=== PATIENT | female | born 1985 ===

== ENCOUNTER 2016-10-20 16:55 | Emergency (ER) | payer MEDICAID ==
[2016-10-20 16:56] VITALS: BMI 25.8
[2016-10-20 17:08] VITALS: TEMP 99; O2SAT 100
--- NOTE | 2016-10-20 17:35 | ED PDOC ---
Arrival/HPI - General Chief Complaint: Abdominal Pain Time Seen by Provider: 10/20/16 17:10 Historian: Patient - History of Present Illness Narrative History of Present Illness (Text): 10/20/16 17:31 Patient reports that she is , has a history of an ectopic on the right side 2 years ago, and is status post right oophorectomy and removal of her right fallopian tube. She doesn't know far along she is in her , reports developing sudden onset of sharp constant left pelvic pain associated with light pink vaginal d/c. Otherwise: (-) N/V, (-) fever, (-) urinary symptoms , (-) prior salpingitis. Has (-) care and (-) prior OB ultrasound. Reports her first appointment with her OB is on 10/28/16. B[employer]ER HISTORY: 5 Para 3 AB 0 LNMP 08/22/16 Past Medical History - Provider Review Nursing Documentation Reviewed: Yes - Past History Past History: No Previous - Infectious Disease Hx of Infectious Diseases: None - Tetanus Immunization Tetanus Immunization: Unknown - Past Medical History Past Medical History: No Previous - Cardiac Hx Cardiac Disorders: No - Pulmonary Hx Respiratory Disorders: No - Neurological Hx Neurological Disorder: No - HEENT Hx HEENT Disorder: No - Renal Hx Renal Disorder: No - Endocrine/Metabolic Hx Endocrine Disorders: No - Hematological/Oncological Hx Blood Disorders: No - Integumentary Hx Dermatological Disorder: No - Musculoskeletal/Rheumatological Hx Musculoskeletal Disorders: No - Gastrointestinal Hx Gastrointestinal Disorders: No - Genitourinary/Gynecological Hx Genitourinary Disorders: No - Psychiatric Hx Psychophysiologic Disorder: No Hx Substance Use: No - Past Surgical History Past Surgical History: No Previous - Surgical History Other/Comment: Right Fallopian Tube and ovary removed. - Anesthesia Hx Anesthesia: Yes Hx Anesthesia Reactions: No - Suicidal Assessment Feels Threatened In Home Enviroment: No Family/Social History - Physician Review Nursing Documentation Reviewed: Yes Family/Social History: No Known Family HX Smoking Status: Former Smoker Hx Alcohol Use: Yes (Last week) Hx Substance Use: No Hx Substance Use Treatment: No Allergies/Home Meds Allergies/Adverse Reactions: Allergies No Known Allergies Allergy (Verified 10/20/16 17:08) Home Medications: Home Meds Medication Instructions Recorded Confirmed Vit Calc,Iron,Folic 1 tab PO DAILY 10/20/16 10/20/16 [ Vitamins] Review of Systems - Review of Systems Constitutional: Normal. absent: Fatigue, Weight Change, Fevers Respiratory: Normal. absent: SOB, Cough, Sputum Cardiovascular: Normal. absent: Chest Pain, Palpitations, Edema Gastrointestinal: Normal, Abdominal Pain. absent: Stool Changes, Appetite Changes Genitourinary Female: Normal, Vaginal Discharge. absent: Dysuria, Frequency, Hematuria Musculoskeletal: Normal. absent: Arthralgias, Back Pain, Neck Pain Skin: Normal. absent: Rash, Pruritis, Skin Lesions Physical Exam - Physical Exam Narrative Physical Exam (Text): 10/20/16 17:37 GENERAL APPEARANCE: Patient is awake, alert, oriented x 3, in mild painful distress. SKIN: Warm, dry; (-) cyanosis. EYES: (-) conjunctival pallor. ENMT: Mucous membranes moist. NECK: (-) tenderness, (-) stiffness, (-) lymphadenopathy. CHEST AND RESPIRATORY: (-) rales, (-) rhonchi, (-) wheezes; breath sounds equal bilaterally. HEART AND CARDIOVASCULAR: (-) irregularity; (-) murmur, (-) gallop. ABDOMEN AND GI: Soft; (+) L pelvic tenderness. EXTREMITIES: (-) deformity. NEURO AND PSYCH: Mental status as above; (-) focal findings. Vital Signs Temp Pulse Resp BP Pulse Ox 10/20/16 20:21 70 18 138/79 100 10/20/16 17:03 99 F 74 16 146/84 100 Medical Decision Making ED Course and Treatment: 10/20/16 17:35 31 yo F ~8 weeks based on her LMP, w/ history of an ectopic on the right side 2 years ago, is status post right oophorectomy and removal of her right fallopian tube, reports developing sudden onset of sharp constant left pelvic pain associated with light pink vaginal d/c. Patient is refusing analgesics at this time. Plan: -- Labs -- IV fluids -- Urinalysis -- Type and screen / beta quant -- Reassess and disposition -- US TV 10/20/16 19:48 On re-evaluation, patient is resting in bed comfortably in no acute distress. Patient is now asking for pain medication. On exam, abdomen remains soft with mild tenderness to the L pelvic area, (-) suárez's, (-) rebound, (-) guarding. US results reviewed. Patient given tylenol po. US TV : Findings consistent with likely early intrauterine . No adnexal mass or torsion. No free fluid. Consider serial hCG follow-up and repeat ultrasound in one or 2 weeks for more definitive assessment. Beta quant 2,323 Type and screen O+ Diagnosis of early discussed with the patient and notified that she likely does not have an ectopic. However the patient was advised to f/u with her OB after 2 days or return to the ER if she is unable to see her OB to have a repeat beta quant. Otherwise was instructed to return to the emergency room at any time for any new or worsening symptoms. Patient states she fully agrees with and understands discharge instructions. States that she agrees with the plan and disposition. Verbalized and repeated discharge instructions and plan. I have given the patient opportunity to ask any additional questions. - Lab Interpretations Lab Results: 10/20/16 17:30 10/20/16 17:30 Lab Results 10/20/16 17:49: Blood Type O POSITIVE, Antibody Screen Negative, BBK History Checked Patient has bt 10/20/16 17:30: Beta HCG, Quant 2323.50 H 10/20/16 17:30: Sodium 138, Potassium 3.9, Chloride 103, Carbon Dioxide 23, Anion Gap 16, BUN 13, Creatinine 0.5, Est GFR ( Amer) > 60, Est GFR (Non- Af Amer) > 60, Random Glucose 81, Calcium 9.9, Total Bilirubin 0.4, AST 119 H, ALT 282 H, Alkaline Phosphatase 150 H, Total Protein 7.8, Albumin 4.4, Globulin 3.4, Albumin/Globulin Ratio 1.3 10/20/16 17:30: PT 11.3, INR 1.05, APTT 28.0 10/20/16 17:30: WBC 14.8 H D, RBC 4.18, Hgb 13.3, Hct 39.4, MCV 94.3, MCH 31.8, MCHC 33.8, RDW 13.5, Plt Count 233, MPV 10.7, Gran % 58.7, Lymph % (Auto) 31.4, [place] % (Auto) 8.4 H, Eos % (Auto) 1.3 L, Baso % (Auto) 0.2, Gran # 8.69 H, Lymph # 4.7 H, [place] # 1.2 H, Eos # 0.2, Baso # 0.03 10/20/16 17:15: Urine Color Yellow, Urine Appearance Clear, Urine pH 6.0, Ur Specific [place] >= 1.030, Urine Protein 30 H, Urine Glucose (UA) Negative, Urine Ketones Negative, Urine Blood Negative, Urine Nitrate Negative, Urine Bilirubin Negative, Urine Urobilinogen 0.2, Ur Leukocyte Esterase Negative, Urine RBC 0 - 2, Urine WBC 0 - 2, Ur Epithelial Cells Many, Amorphous Sediment Few, Urine Bacteria Many, Urine Other Uyeast I have reviewed the lab results: Yes (LFTs mildly elevated, pt reports that this is not new and has had prior hx.) - RAD Interpretation Narrative RAD Interpretations (Text): 10/20/16 19:46 US TV : FINDINGS: Gestation: Intrauterine gestational sac is present, with adjacent decidual cast. No yolk sac is present. Embryo is not seen at this time, no heart tones. Corresponds to less than 4 weeks. Placenta/amniotic fluid: Cannot be adequately evaluated due to the early gestational age. Uterus/cervix: The uterus measures 10.7 cm and is anteverted. Cervix 3.4 cm. Endometrial thickness 9.5 mm. No myometrial mass. Ovaries: Unremarkable. No mass. Normal flow. Free fluid: No free fluid. IMPRESSION: Findings consistent with likely early intrauterine . No adnexal mass or torsion. No free fluid. Consider serial hCG follow-up and repeat ultrasound in one or 2 weeks for more definitive assessment. Dictated and Authenticated by: Phil Perez MD 10/20/2016 7:33 PM Eastern Time ([place] & [place]) Radiology Orders: 10/20/16 17:25 OB TRANSVAGINAL [US] Stat - Medication Orders Current Medication Orders: Discontinued Medications Acetaminophen (Tylenol 325mg Tab) 975 mg PO STAT STA Stop: 10/20/16 19:48 Last Admin: 10/20/16 19:49 Dose: 975 mg Acetaminophen (Tylenol 325mg Tab) Confirm Administered Dose 975 mg .ROUTE .STK- MED ONE Stop: 10/20/16 19:49 Last Admin: 10/20/16 19:52 Dose: - PA / MANUFACTURER[employer]S SERVICE REPRESENTATIVE / Resident Statement /DO has reviewed & agrees with the documentation as recorded. Disposition/Present on Arrival - Present on Arrival Any Indicators Present on Arrival: No History of DVT/PE: No History of Uncontrolled Diabetes: No Urinary Catheter: No History of Decub. Ulcer: No History Surgical Site Infection Following: None - Disposition Have Diagnosis and Disposition been Completed?: Yes Diagnosis: Pelvic pain, Disposition: HOME/ ROUTINE Disposition Time: 20:06 Patient Plan: Discharge Condition: STABLE Discharge Instructions (ExitCare): (ED), Abdominal Pain (ED) Print Language: TURKMEN Additional Instructions: Thank you for letting us take care of you today. You were treated for abdominal pain, likely early . The emergency medical care you received today was directed at your acute symptoms. Return to the Emergency Department if your symptoms worsen, do not improve, or if you have any other problems. Please contact your OB doctor after 2 days for repeat Beta Quant, if unable to return to the ER. Bring any paperwork you were given at discharge with you along with any medications you are taking to your follow up visit. Our treatment cannot replace ongoing medical care by a primary care provider (PCP) outside of the emergency department. Thank you for allowing the [facility] team to be part of your care today. Forms: [employer] (Togolese), WORK NOTE
[2016-10-20 17:42] LABS: URINE BILIRUBIN NEGATIVE (NEGATIVE); URINE BLOOD NEGATIVE (NEGATIVE); URINE GLUCOSE (UA) NEGATIVE (NEGATIVE); URINE KETONE NEGATIVE (NEGATIVE); URINE LEUKOCYTE ESTERASE NEGATIVE Leu/uL (NEGATIVE); URINE PROTEIN 30 mg/dL (<30 mg/dL); URINE UROBILINOGEN 0.2 E.U./dL (<1 E.U./dL)
[2016-10-20 17:42] LABS: BASO # 0.03 K/mm3 (0.0-2.0); BASO % 0.2 % (0.0-3.0); EOS # 0.2 (0.0-0.7); EOS % 1.3 % (1.5-5.0); GRAN # 8.69 (1.4-6.5); GRAN % 58.7 % (50.0-68.0); HEMATOCRIT 39.4 % (36.0-48.0); LYMPH # 4.7 (1.2-3.4); LYMPH % 31.4 % (22.0-35.0); MEAN CELL VOLUME 94.3 fl (80.0-105.0); MEAN CORPUSCULAR HEMOGLOBIN 31.8 pg (25.0-35.0); MEAN CORPUSCULAR HGB CONC 33.8 g/dl (31.0-37.0); MEAN PLATELET VOLUME 10.7 fl (7.0-11.0); MONO # 1.2 (0.1-0.6); MONO % 8.4 % (1.0-6.0); RED CELL DISTRIBUTION WIDTH 13.5 % (11.5-14.5); WHITE BLOOD COUNT 14.8 10^3/ul (4.5-11.0)
[2016-10-20 17:44] LABS: URINE APPEARANCE CLEAR (CLEAR); URINE COLOR YELLOW (YELLOW)
[2016-10-20 17:47] LABS: URINE AMORPHOUS SEDIMENT FEW; URINE BACTERIA MANY (NEG); URINE EPITHELIAL CELLS MANY /hpf (0-5); URINE RBC 0 - 2 /hpf (0-2); URINE WBC 0 - 2 /hpf (0-6)
[2016-10-20 17:52] LABS: INR 1.05 (0.93-1.08)
[2016-10-20 17:59] LABS: ALB/GLOB RATIO 1.3 (1.1-1.8); ALKALINE PHOSPHATASE 150 U/L (38-126); ALT/SGPT 282 U/L (7-56); AST/SGOT 119 U/L (14-36); BILIRUBIN,TOTAL 0.4 mg/dL (0.2-1.3); BLOOD UREA NITROGEN 13 mg/dL (7-21); CALCIUM 9.9 mg/dL (8.4-10.5); CARBON DIOXIDE 23 mmol/L (21-33); CHLORIDE 103 mmol/L (98-107); GFR AFRICAN-AMERICAN > 60; GLUCOSE,RANDOM 81 mg/dL (70-110); POTASSIUM 3.9 mmol/L (3.6-5.0); SODIUM 138 mmol/L (132-148); TOTAL PROTEIN 7.8 g/dL (5.8-8.3)
[2016-10-20 20:21] VITALS: BP 138/79; PULSE 70; RESP 18
--- NOTE | 2016-10-21 07:39 | US ---
PROCEDURE: OB Pelvic Ultrasound HISTORY: L pelvic pain, r/o ectopic, has h/o prior ectopic COMPARISON: None available. FINDINGS: UTERUS: Probable early intrauterine gestational sac identified. Sac diameter is 7 mm, out of range for age determination. No pole. No subchorionic hemorrhage. Uterus measures 10.7 x 6.4 x 7.3 cm. The endometrium 10 mm in diameter. . CERVIX: Long and closed. No cervical abnormality seen. RIGHT OVARY: Measures 3.7 x 2.0 x 3.8 cm. No mass. Normal flow. LEFT OVARY: Measures 4.8 x 2.5 x 3.9 cm. No mass. Normal flow. FREE FLUID: None. OTHER FINDINGS: None. IMPRESSION: Probable early intrauterine gestation. Sac diameter out of range for age determination. No pole. No subchorionic hemorrhage. Follow-up with transvaginal pelvic ultrasound examination and serial beta HCG assessment advised.
== END 2016-10-20 20:19 | disposition home or self-care (01) ==
LOC: ED 16:55
DX: O26.891 Other specified pregnancy related conditions, first trimester (principal); R10.2 Pelvic and perineal pain; Z3A.00 Weeks of gestation of pregnancy not specified; Z90.721 Acquired absence of ovaries, unilateral

== ENCOUNTER 2016-10-22 10:06 | Emergency (ER) | payer MEDICAID ==
[2016-10-22 10:13] VITALS: TEMP 98.4; BMI 30.9
--- NOTE | 2016-10-22 10:58 | ED PDOC ---
Arrival/HPI - General Chief Complaint: Medical Clearance Time Seen by Provider: 10/22/16 10:50 Historian: Patient - History of Present Illness Narrative History of Present Illness (Text): 10/22/16 10:54 This 31 yo female [id number], Gravid, PMH ectopic x 2 years ago, presents to this ED with Spouse requesting a repeat blood test. She stated she was recommended to have blood test repeated in 2 days by her SEWER PIPE SORTER, and to return to ED if unable to get this test as out-pt. Patient doesn't know far along she is in her , reports left pelvic pain has been progressively improving. (-) N/V, (-) fever, (-) urinary symptoms, (-) prior salpingitis. Has (-) care and (-) prior OB ultrasound. Reports her first appointment with her OB is on 10/28/16. [employer] HISTORY: 5 Para 3 AB 1 LNMP 08/22/16 Time/Duration: Other (see hpi) Context: Home Past Medical History - Provider Review Nursing Documentation Reviewed: Yes - Past History Past History: No Previous - Infectious Disease Hx of Infectious Diseases: None - Tetanus Immunization Tetanus Immunization: Unknown - Past Medical History Past Medical History: No Previous - Cardiac Hx Cardiac Disorders: No - Pulmonary Hx Respiratory Disorders: No - Neurological Hx Neurological Disorder: No - HEENT Hx HEENT Disorder: No - Renal Hx Renal Disorder: No - Endocrine/Metabolic Hx Endocrine Disorders: No - Hematological/Oncological Hx Blood Disorders: No - Integumentary Hx Dermatological Disorder: No - Musculoskeletal/Rheumatological Hx Musculoskeletal Disorders: No - Gastrointestinal Hx Gastrointestinal Disorders: No - Genitourinary/Gynecological Hx Genitourinary Disorders: No - Psychiatric Hx Psychophysiologic Disorder: No Hx Substance Use: No - Past Surgical History Past Surgical History: No Previous - Surgical History Other/Comment: Right Fallopian Tube and ovary removed after ectopic - Anesthesia Hx Anesthesia: Yes Hx Anesthesia Reactions: No - Suicidal Assessment Feels Threatened In Home Enviroment: No Family/Social History - Physician Review Nursing Documentation Reviewed: Yes Family/Social History: Other (Non-contributory) Smoking Status: Former Smoker Hx Alcohol Use: Yes (Last week) Hx Substance Use: No Hx Substance Use Treatment: No Allergies/Home Meds Allergies/Adverse Reactions: Allergies No Known Allergies Allergy (Verified 10/22/16 10:10) Home Medications: Home Meds Medication Instructions Recorded Confirmed Vit Calc,Iron,Folic 1 tab PO DAILY 10/20/16 10/22/16 [ Vitamins] Review of Systems - Review of Systems Constitutional: Normal. absent: Fatigue, Weight Change, Fevers Eyes: Normal ENT: Normal Respiratory: Normal. absent: SOB, Cough Cardiovascular: Normal. absent: Chest Pain, Palpitations Gastrointestinal: Other (see hpi). absent: Constipation, Diarrhea, Nausea, Vomiting Genitourinary Female: Normal. absent: Dysuria, Frequency, Hematuria, Vaginal Bleeding, Vaginal Discharge Musculoskeletal: Normal. absent: Back Pain Skin: Normal Neurological: Normal. absent: Headache, Dizziness, Focal Weakness, Gait Changes , Facial Droop, Disequilibrium Endocrine: Normal Hemo/Lymphatic: Normal Psychiatric: Normal Physical Exam Vital Signs Temp Pulse Resp BP Pulse Ox 10/22/16 10:12 98.4 F 92 H 17 119/79 96 Temperature: Afebrile Blood Pressure: Normal Pulse: Regular Respiratory Rate: Normal Appearance: Positive for: Well-Appearing, Non-Toxic, Comfortable Pain Distress: None Mental Status: Positive for: Alert and Oriented X 3 - Systems Exam Head: Present: Atraumatic, Normocephalic Pupils: Present: PERRL Extroacular Muscles: Present: EOMI Conjunctiva: Present: Normal Mouth: Present: Moist Mucous Membranes Neck: Present: Normal Range of Motion Respiratory/Chest: Present: Clear to Auscultation, Good Air Exchange. No: Respiratory Distress, Accessory Muscle Use, Wheezes, Retracting, Rhonchi Cardiovascular: Present: Regular Rate and Rhythm, Normal S1, S2. No: Murmurs Abdomen: Present: Normal Bowel Sounds. No: Tenderness, Distention, Peritoneal Signs, Rebound, Guarding Upper Extremity: Present: Normal Inspection, Normal ROM. No: Edema Lower Extremity: Present: Normal Inspection, Normal ROM. No: Edema Neurological: Present: GCS=15, CN II-XII Intact, Speech Normal Skin: Present: Warm, Dry, Normal Color. No: Rashes Psychiatric: Present: Alert, Oriented x 3 Medical Decision Making ED Course and Treatment: 10/22/16 12:07 Re-evaluation. Patient feels better. Discussed results and plan with patient who expresses understanding. All questions answered and there is agreement with the plan to discharge home with instructions. Patient stable for discharge. Return if symptoms persist or worsen. Patient stated she feels well on her normal state of health. Pelvic pain has improved. Patient has an appointment to see her SEWER PIPE SORTER next Friday - Lab Interpretations Lab Results: Lab Results 10/22/16 11:18: Beta HCG, Quant 5438.30 H Disposition/Present on Arrival - Present on Arrival Any Indicators Present on Arrival: No History of DVT/PE: No History of Uncontrolled Diabetes: No Urinary Catheter: No History of Decub. Ulcer: No History Surgical Site Infection Following: None - Disposition Have Diagnosis and Disposition been Completed?: Yes Diagnosis: Disposition: HOME/ ROUTINE Disposition Time: 12:24 Patient Plan: Discharge Patient Problems: Current Active Problems Problem Status Onset Acute Condition: GOOD Discharge Instructions (ExitCare): (ED) Additional Instructions: Call private SEWER PIPE SORTER doctor office for revaluation in 7 days. SEWER PIPE SORTER may repeat blood test, and ultrasound. If symptoms returns or new symptoms develops. Continue with Pre . Referrals: PCP,NO [Primary Care Provider] - Follow up with primary [facility] [Outside] - [facility] with [facility] [Outside] - Follow up with primary Forms: [employer] ([place] Arabian), WORK NOTE
[2016-10-22 12:52] VITALS: BP 115/89; PULSE 89; RESP 18; O2SAT 97
== END 2016-10-22 12:51 | disposition home or self-care (01) ==
LOC: ED 10:06
DX: O26.899 Other specified pregnancy related conditions, unspecified trimester (principal); Z3A.00 Weeks of gestation of pregnancy not specified